=== PATIENT | male | born 1985 | race Hispanic/Latino ===

== ENCOUNTER 2018-04-13 07:15 | Emergency (ER) | payer BC ==
[2018-04-13] MEDS ORDERED: DEXAMETHASONE SOD PHOSPHATE 10MG/ML 1ML VIAL ONE (08:11)
[2018-04-13] MEDS ORDERED: KETOROLAC TROMETHAMINE 30MG/ML ONE (08:11)
== END 2018-04-13 10:06 | disposition home or self-care (01) ==
LOC: EDH 07:15
DX: M54.5 Low back pain (principal); Z90.49 Acquired absence of other specified parts of digestive tract; Z72.0 Tobacco use
CPT/HCPCS: 72100; 96374; 96375; 99284; J1100; J1885

== ENCOUNTER 2018-05-23 23:01 | Emergency (ER) | payer BC, OTHER ==
[2018-05-24] MEDS ORDERED: KETOROLAC TROMETHAMINE 60 MG/2 ML VIAL ONE (01:33)
[2018-05-24] MEDS ORDERED: DIAZEPAM 5 MG TABLET ONE (01:38)
== END 2018-05-24 01:54 | disposition home or self-care (01) ==
LOC: EDH 23:01
DX: S80.01XA Contusion of right knee, initial encounter (principal); M54.5 Low back pain; M62.838 Other muscle spasm; Z90.49 Acquired absence of other specified parts of digestive tract; Y08.89XA Assault by other specified means, initial encounter; Y93.89 Activity, other specified; Y92.89 Other specified places as the place of occurrence of the external cause; Y99.0 Civilian activity done for income or pay
CPT/HCPCS: 72100; 73562; 96372; 99283; J1885

== ENCOUNTER 2019-07-16 00:37 | Emergency (ER) | payer OTHER ==
[2019-07-16] MEDS ORDERED: ONDANSETRON ODT 4 MG TAB ONE (01:57)
[2019-07-16] MEDS ORDERED: METOCLOPRAMIDE 10 MG TABLET ONE (01:57)
[2019-07-16] MEDS ORDERED: KETOROLAC TROMETHAMINE 60 MG/2 ML VIAL ONE (01:57)
== END 2019-07-16 03:10 | disposition home or self-care (01) ==
LOC: EDH 00:37
DX: S80.01XA Contusion of right knee, initial encounter (principal); S09.90XA Unspecified injury of head, initial encounter; S80.11XA Contusion of right lower leg, initial encounter; Z87.891 Personal history of nicotine dependence; W18.39XA Other fall on same level, initial encounter; Y93.89 Activity, other specified; Y92.89 Other specified places as the place of occurrence of the external cause; Y99.8 Other external cause status
CPT/HCPCS: 70450; 73562; 73590; 96372; 99284; J1885